=== PATIENT | female | born 1995 | race African-American/Black ===

== ENCOUNTER 2020-01-29 00:47 | Emergency (ER) | payer MEDICAID, OTHER ==
[~2020-01-29] VITALS: Ht 167.6 cm; Wt 55.0 kg
[~2020-01-29 00:47] MED LIST: PREN-88 PO
[2020-01-29 00:54] VITALS: BP 133/81
[2020-01-29] MEDS ORDERED: VISCOUS LIDOCAINE 2% 15 ML UDC MM STA (01:39)
[2020-01-29] MEDS ORDERED: ONDANSETRON 4MG ODT PO ONE (01:45)
[2020-01-29] MEDS ORDERED: FAMOTIDINE 20MG TABLET PO ONE (01:45)
[2020-01-29] MEDS ORDERED: MAGNESIUM/ALUMINUM HYDROXIDE/SIMETHICONE 30ML UDC PO ONE (01:45)
== END 2020-01-29 04:18 | disposition home or self-care (01) ==
LOC: EEVIPCON 00:47 → ER 00:47
DX: R11.2 Nausea with vomiting, unspecified (principal); R19.7 Diarrhea, unspecified
CPT/HCPCS: 81025; 93005; 99284; Q0162